=== PATIENT | male | born 1940 | race Caucasian/White ===

== ENCOUNTER 2016-06-05 10:48 | Inpatient (IN) | payer OTHER, BC ==
[2016-06-05] MEDS ORDERED: NS 1/2 1000 ML IV 1,000 ML IV SCH (12:43)
[2016-06-05] MEDS ORDERED: TUSSIONEX PENNKINETIC SUSP PO PRN (12:43)
[2016-06-05] MEDS ORDERED: ULTRAM PO PRN (12:58)
[2016-06-05] MEDS ORDERED: SIMETHICONE PO PRN (12:58)
[2016-06-05] MEDS: DUONEB 0.5 MG/3 MG NEB SCH ×3 (13:11→20:31)
[2016-06-05] MEDS ORDERED: NS 1/2 1000 ML IV 1,000 ML IV ONE (13:11)
[2016-06-05 13:15] LABS: BASOPHILS % (AUTO) 0.2 % (0.2-1.0); HEMATOCRIT 29.4 % (42.0-54.0); HEMOGLOBIN 9.8 g/dL (13.5-18.0); LYMPHOCYTES # (AUTO) 1.1 X10^3/uL (1.3-2.9); LYMPHOCYTES % (AUTO) 14.1 % (21.0-51.0); MEAN CORPUSCULAR HEMOGLOBIN 29.6 pg (27.0-34.0); MEAN CORPUSCULAR HGB CONC 33.4 g/dL (33.0-35.0); MEAN CORPUSCULAR VOLUME 88.7 fL (80.0-100.0); MEAN PLATELET VOLUME 7.8 fL (7.4-11.0); MONOCYTES # (AUTO) 0.3 x10^3/uL (0.3-0.8); MONOCYTES % (AUTO) 4.6 % (0.0-13.0); NEUTROPHILS # (AUTO) 6.1 x10^3/uL (2.2-4.8); NEUTROPHILS % (AUTO) 81.1 % (42.0-75.0); PLATELET COUNT 203 X10^3/uL (150.0-450.0); RED BLOOD COUNT 3.32 X10^6/uL (4.7-6.0); RED CELL DISTRIBUTION WIDTH 17.6 % (11.6-16.5); WHITE BLOOD COUNT 7.6 X10^3/uL (3.6-10.0)
[2016-06-05] MEDS ORDERED: MYLICON TAB 80 MG CHEW PO PRN (13:18)
[2016-06-05] MEDS: LEVAQUIN PREMIX IV 750 MG 750 MG/150 ML BAG IV SCH (13:26)
[2016-06-05] MEDS: ROBITUSSIN DM PO SCH ×3 (13:26→21:32)
[2016-06-05] MEDS ORDERED: LEXAPRO ONE (13:28)
[2016-06-05] MEDS: LEXAPRO PO SCH (13:28)
[2016-06-05 13:42] LABS: ALANINE AMINOTRANSFERASE 21 Units/L (12-78); ALBUMIN 2.3 g/dL (3.4-5.0); ALKALINE PHOSPHATASE 73 Units/L (46-116); ASPARTATE AMINO TRANSFERASE 16 Units/L (15-37); BLOOD UREA NITROGEN 19 mg/dL (7-18); CALCIUM 7.9 mg/dL (8.5-10.1); CARBON DIOXIDE 30.6 mmol/L (21-32); CHLORIDE 97 mmol/L (98-107); COR CA(FOR HYPOALB) 9.3 mg/dL (8.5-10.1); CREATININE 0.75 mg/dL (0.70-1.30); GLUCOSE 86 mg/dL (65-99); SODIUM 135 mmol/L (136-145); TOTAL PROTEIN 5.8 g/dL (6.4-8.2); eGFR BLACK RACES > 60 (>60); eGFR NON BLACK RACES > 60 (>60)
[2016-06-05] MEDS: TUMS PO SCH ×2 (14:38→21:33)
[2016-06-05] MEDS: ZOSYN VIAL 4.5 GM 4.5 GM in NS 100 ML IV + SPIKE MINIBAG* 100 ML IV SCH ×2 (14:40→22:00)
[2016-06-05] MEDS ORDERED: MORPHINE SULFATE INJ 2 MG IVP PRN (14:49)
[2016-06-05] MEDS ORDERED: MORPHINE SULFATE INJ 2 MG ONE (14:50)
--- NOTE | 2016-06-05 15:09 | DR.UPDATE ---
H&P Update History and Physical Update: HISTORY AND PHYSICAL UPDATE FOR ADMISSION 06/05/16 MR. HERNANDEZ'S H&P WAS COMPLETED IN OUR OFFICE PRIOR TO ADMISSION. HE HAS BEEN SEEN AND EXAMINED WITH NO CHANGES NOTED.
[2016-06-05] MEDS ORDERED: OXYFAST ORAL CONCENTRATE PO PRN (15:12)
[2016-06-05 15:50] LABS: ABG BASE EXCESS 5.4 mmol/L (-2.0-2.0)
[2016-06-05 15:51] LABS: ABG HCO3 31.9 mmol/L (22-26)
[2016-06-05 15:52] LABS: ABG ALLEN TEST POS
--- NOTE | 2016-06-05 16:07 | RAD ---
Chest AP portable Indication: Pneumonia. Comparison: May 16, 2016. Findings: There is bilateral pulmonary opacities, without pneumothorax. Heart size is prominent. Sma ll effusions may be present. Impression: Findings suggest multifocal pneumonia. CHF is possible as well. Followup to resolution. PA and lateral chest may be helpful. Reported By:
[2016-06-05 16:10] VITALS: BMI 26.7
[2016-06-05] MEDS: VALIUM INJ IVP PRN (16:22)
[2016-06-05] MEDS: CARAFATE PO SCH ×2 (17:17→21:31)
[2016-06-05] MEDS ORDERED: MORPHINE SULFATE PCA 30 MG IVP PRN (18:47)
[2016-06-05] MEDS ORDERED: NS 1/2 500 ML IV 500 ML IV SCH (19:00)
[2016-06-05] MEDS ORDERED: MORPHINE SULFATE PCA 30 MG IVP SCH (19:00)
[2016-06-05] MEDS: ELIQUIS PO SCH (21:30)
[2016-06-05] MEDS: MEGACE PO SCH (21:31)
[2016-06-05] MEDS: [UNRECOGNIZED DRUG - OTHER] PO SCH (21:32)
[2016-06-05] MEDS: SOLU-MEDROL 40 MG VIAL IVP SCH (22:01)
[2016-06-05 22:14] LABS: ABG BASE EXCESS 6.3 mmol/L (-2.0-2.0)
[2016-06-05 22:15] LABS: ABG HCO3 30.6 mmol/L (22-26); FRACTIONATED INSPIRED OXYGEN 70
[2016-06-06] MEDS: DUONEB 0.5 MG/3 MG NEB SCH ×6 (01:03→20:30)
[2016-06-06 05:01] LABS: ABG BASE EXCESS 6.8 mmol/L (-2.0-2.0)
[2016-06-06 05:02] LABS: ABG HCO3 31.3 mmol/L (22-26); FRACTIONATED INSPIRED OXYGEN 70
[2016-06-06 05:30] LABS: BASOPHILS % (AUTO) 0 % (0.2-1.0); EOSINOPHILS % (AUTO) 0.1 % (0.9-2.9); HEMATOCRIT 29.3 % (42.0-54.0); HEMOGLOBIN 9.8 g/dL (13.5-18.0); LYMPHOCYTES # (AUTO) 0.4 X10^3/uL (1.3-2.9); MEAN CORPUSCULAR HEMOGLOBIN 29.7 pg (27.0-34.0); MEAN CORPUSCULAR HGB CONC 33.5 g/dL (33.0-35.0); MEAN CORPUSCULAR VOLUME 88.8 fL (80.0-100.0); MEAN PLATELET VOLUME 8.7 fL (7.4-11.0); MONOCYTES # (AUTO) 0.1 x10^3/uL (0.3-0.8); MONOCYTES % (AUTO) 1.5 % (0.0-13.0); NEUTROPHILS # (AUTO) 8.2 x10^3/uL (2.2-4.8); NEUTROPHILS % (AUTO) 93.4 % (42.0-75.0); PLATELET COUNT 166 X10^3/uL (150.0-450.0); RED CELL DISTRIBUTION WIDTH 17.3 % (11.6-16.5); WHITE BLOOD COUNT 8.8 X10^3/uL (3.6-10.0)
[2016-06-06 05:42] LABS: ALANINE AMINOTRANSFERASE 17 Units/L (12-78); ALKALINE PHOSPHATASE 68 Units/L (46-116); ASPARTATE AMINO TRANSFERASE 12 Units/L (15-37); BLOOD UREA NITROGEN 22 mg/dL (7-18); CALCIUM 8.3 mg/dL (8.5-10.1); CARBON DIOXIDE 28.4 mmol/L (21-32); CHLORIDE 99 mmol/L (98-107); COR CA(FOR HYPOALB) 9.9 mg/dL (8.5-10.1); COR NA(FOR HYPERGLY) 135 mmol/L (136-145); CREATININE 0.69 mg/dL (0.70-1.30); GLUCOSE 115 mg/dL (65-99); SODIUM 135 mmol/L (136-145); TOTAL PROTEIN 5.3 g/dL (6.4-8.2); eGFR BLACK RACES > 60 (>60); eGFR NON BLACK RACES > 60 (>60)
[2016-06-06] MEDS: ZOSYN VIAL 4.5 GM 4.5 GM in NS 100 ML IV + SPIKE MINIBAG* 100 ML IV SCH ×3 (06:05→22:47)
[2016-06-06] MEDS: TUMS PO SCH ×3 (06:05→22:46)
[2016-06-06] MEDS: SOLU-MEDROL 40 MG VIAL IVP SCH ×3 (06:05→22:47)
[2016-06-06] MEDS: CARAFATE PO SCH ×4 (06:17→22:45)
[2016-06-06 06:20] LABS: BAND NEUTROPHILS % 39 % (0-10); METAMYELOCYTES % 10
[2016-06-06 06:21] LABS: PLATELET MORPHOLOGY COMMENT NORMAL (NORMAL)
[2016-06-06] MEDS ORDERED: LEXAPRO ONE (08:41)
[2016-06-06] MEDS ORDERED: ZOFRAN INJ 4 MG VIAL IVP PRN (09:00)
[2016-06-06] MEDS ORDERED: MORPHINE SULFATE PCA 30 MG IVP PRN (09:00)
[2016-06-06] MEDS ORDERED: PROCALAMINE 3 % 1,000 ML IV SCH (09:00)
[2016-06-06] MEDS: LEVAQUIN PREMIX IV 750 MG 750 MG/150 ML BAG IV SCH (09:08)
[2016-06-06] MEDS: ALBUMIN HUMAN 25%- 100ML 100 ML IV SCH (09:08)
[2016-06-06] MEDS: ROBITUSSIN DM PO SCH ×4 (09:09→22:46)
[2016-06-06] MEDS: MILK OF MAGNESIA PO SCH (09:09)
[2016-06-06] MEDS: ELIQUIS PO SCH ×2 (09:10→22:45)
[2016-06-06] MEDS: MEGACE PO SCH ×2 (09:10→22:45)
[2016-06-06] MEDS: LEXAPRO PO SCH (09:10)
[2016-06-06] MEDS: [UNRECOGNIZED DRUG - OTHER] PO SCH (09:11)
[2016-06-06] MEDS: CLINIMIX 4.25 %/10 % 1,000 ML with MVI INJ (ADULT) 10 ML, TRACE ELEMENTS INJ 10 ML, TPN... IV SCH ×5 (16:59)
[2016-06-06] MEDS ORDERED: SNACK - Diabetic Appropriate PO SCH (20:00)
[2016-06-06] MEDS: [UNRECOGNIZED DRUG - OTHER] PO SCH (22:46)
[2016-06-06] MEDS: OTBS NS XX SCH (22:50)
[2016-06-06] MEDS: HUMULIN R SUBCUT PRN (23:01)
[2016-06-07] MEDS: HUMULIN R SUBCUT PRN (01:02)
[2016-06-07] MEDS: OTBS NS XX SCH ×3 (01:02→09:57)
[2016-06-07] MEDS: CLINIMIX 4.25 %/10 % 1,000 ML with MVI INJ (ADULT) 10 ML, TRACE ELEMENTS INJ 10 ML, TPN... IV SCH ×5 (01:03)
[2016-06-07] MEDS: DUONEB 0.5 MG/3 MG NEB SCH ×4 (01:43→17:33)
[2016-06-07] MEDS: VALIUM INJ IVP PRN (02:26)
[2016-06-07 05:40] LABS: ABG BASE EXCESS 1.7 mmol/L (-2.0-2.0)
[2016-06-07] MEDS ORDERED: LASIX IVP ONE ×2 (05:52→05:55)
[2016-06-07] MEDS ORDERED: NARCAN INJ ONE (06:06)
[2016-06-07 06:08] LABS: BILIRUBIN,URINE NEGATIVE (NEGATIVE); BLOOD/HEMOGLOBIN,URINE 1+ (NEGATIVE); GLUCOSE, URINE NEGATIVE (NEGATIVE); KETONES,URINE NEGATIVE (NEGATIVE); LEUKOCYTE ESTERASE ,URINE NEGATIVE (NEGATIVE); NITRITES,URINE NEGATIVE (NEGATIVE); PROTEIN,URINE 2+ (NEGATIVE); UROBILINOGEN,URINE NORMAL (NORMAL)
[2016-06-07] MEDS ORDERED: NARCAN INJ IM ONE (06:08)
[2016-06-07] MEDS ORDERED: NARCAN INJ IVP ONE (06:08)
[2016-06-07 06:11] LABS: BASOPHILS % (AUTO) 0.3 % (0.2-1.0); HEMATOCRIT 32.7 % (42.0-54.0); HEMOGLOBIN 10.7 g/dL (13.5-18.0); LYMPHOCYTES # (AUTO) 0.6 X10^3/uL (1.3-2.9); LYMPHOCYTES % (AUTO) 5.2 % (21.0-51.0); MEAN CORPUSCULAR HEMOGLOBIN 29.3 pg (27.0-34.0); MEAN CORPUSCULAR HGB CONC 32.7 g/dL (33.0-35.0); MEAN CORPUSCULAR VOLUME 89.6 fL (80.0-100.0); MEAN PLATELET VOLUME 8.8 fL (7.4-11.0); MONOCYTES # (AUTO) 0.3 x10^3/uL (0.3-0.8); MONOCYTES % (AUTO) 2.3 % (0.0-13.0); NEUTROPHILS # (AUTO) 10.2 x10^3/uL (2.2-4.8); NEUTROPHILS % (AUTO) 92.2 % (42.0-75.0); PLATELET COUNT 223 X10^3/uL (150.0-450.0); RED BLOOD COUNT 3.65 X10^6/uL (4.7-6.0); RED CELL DISTRIBUTION WIDTH 17.3 % (11.6-16.5)
[2016-06-07 06:13] LABS: ALANINE AMINOTRANSFERASE 14 Units/L (12-78); ALBUMIN 2.3 g/dL (3.4-5.0); ALKALINE PHOSPHATASE 68 Units/L (46-116); ASPARTATE AMINO TRANSFERASE 15 Units/L (15-37); BLOOD UREA NITROGEN 26 mg/dL (7-18); CALCIUM 8.7 mg/dL (8.5-10.1); CARBON DIOXIDE 29.4 mmol/L (21-32); CHLORIDE 99 mmol/L (98-107); COR CA(FOR HYPOALB) 10.1 mg/dL (8.5-10.1); COR NA(FOR HYPERGLY) 136 mmol/L (136-145); CREATININE 0.65 mg/dL (0.70-1.30); GLUCOSE 215 mg/dL (65-99); MAGNESIUM 2.3 mg/dL (1.7-2.9); SODIUM 133 mmol/L (136-145); TOTAL PROTEIN 5.9 g/dL (6.4-8.2); TRIGLYCERIDES 35 mg/dL (0-150); eGFR BLACK RACES > 60 (>60); eGFR NON BLACK RACES > 60 (>60)
[2016-06-07 06:20] LABS: ABG HCO3 32.5 mmol/L (22-26)
[2016-06-07 06:21] LABS: ABG ALLEN TEST POS
[2016-06-07] MEDS: TUMS PO SCH ×2 (06:32→15:03)
[2016-06-07] MEDS: CARAFATE PO SCH ×3 (06:33→16:35)
[2016-06-07 06:39] LABS: ABG BASE EXCESS -0.6 mmol/L (-2.0-2.0)
[2016-06-07] MEDS: SOLU-MEDROL 40 MG VIAL IVP SCH ×2 (06:42→15:02)
[2016-06-07 06:49] LABS: AMORPHOUS SEDIMENT,UR TRACE /HPF (NEGATIVE); APPEARANCE,URINE CLEAR (CLEAR); BACTERIA,URINE NEGATIVE /HPF (NEGATIVE); COLOR,URINE YELLOW (YELLOW); FINE GRANULAR CASTS,URINE FEW /LPF (NEGATIVE); SQUAMOUS EPITHELIAL CELL,UR RARE /HPF (NEGATIVE)
[2016-06-07 06:50] LABS: MUCUS,URINE FEW /HPF (NEGATIVE)
[2016-06-07 06:52] LABS: ABG HCO3 31.7 mmol/L (22-26)
[2016-06-07 06:53] LABS: ABG ALLEN TEST POS
[2016-06-07 06:57] LABS: ABG BASE EXCESS 0.3 mmol/L (-2.0-2.0)
[2016-06-07 06:59] LABS: ABG ALLEN TEST POS
[2016-06-07 07:22] LABS: BAND NEUTROPHILS % 45 % (0-10); METAMYELOCYTES % 3; PLATELET MORPHOLOGY COMMENT NORMAL (NORMAL)
[2016-06-07 07:42] LABS: ABG BASE EXCESS 4.1 mmol/L (-2.0-2.0)
[2016-06-07 07:43] LABS: ABG HCO3 31.3 mmol/L (22-26)
[2016-06-07 07:44] LABS: ABG ALLEN TEST POS
[2016-06-07] MEDS: ALBUMIN HUMAN 25%- 100ML 100 ML IV SCH (09:42)
[2016-06-07] MEDS: LEVAQUIN PREMIX IV 750 MG 750 MG/150 ML BAG IV SCH (09:43)
[2016-06-07] MEDS: ZOSYN VIAL 4.5 GM 4.5 GM in NS 100 ML IV + SPIKE MINIBAG* 100 ML IV SCH ×2 (09:43→15:02)
[2016-06-07] MEDS: ELIQUIS PO SCH (09:59)
[2016-06-07] MEDS: LEXAPRO PO SCH (09:59)
[2016-06-07] MEDS: [UNRECOGNIZED DRUG - OTHER] PO SCH (09:59)
[2016-06-07] MEDS: ROBITUSSIN DM PO SCH ×3 (10:00→18:55)
[2016-06-07] MEDS: MEGACE PO SCH (10:00)
[2016-06-07] MEDS: MILK OF MAGNESIA PO SCH (10:00)
[2016-06-07] MEDS ORDERED: MORPHINE SULFATE INJ 2 MG ONE (12:06)
[2016-06-07] MEDS ORDERED: MORPHINE SULFATE INJ 2 MG IVP ONE ×2 (12:25→14:34)
[2016-06-07] MEDS ORDERED: NS 500 ML IV 500 ML IV ONE (13:52)
[2016-06-07] MEDS ORDERED: MORPHINE SULFATE PCA 30 MG ONE (13:54)
[2016-06-07] MEDS: MORPHINE SULFATE INJ 2 MG IV SCH ×2 (14:29→14:38)
[2016-06-07] MEDS: VERSED 100 MG in NS 100 ML IV 80 ML IV PRN ×2 (14:30→20:30)
[2016-06-07] MEDS: MORPHINE SULFATE PCA 30 MG IV SCH ×6 (15:01→23:00)
--- NOTE | 2016-06-07 18:51 | PCM.PROG ---
Progress Note - Progress Note for Day of Date: 06/06/16 - Subjective Subjective: PATIENT RESTS IN BED, BIPAP INTACT. PATIENT IS ALERT, ORIENTED. PATIENT REPORTS NAUSEA THIS MORNING. PATIENT WAS STARTED ON A MORPHINE DRIVER/MERCHANDISER YESTERDAY DUE TO REPSIRATORY DISTRESS. THIS MORNING, HE IS DROWSY. O2 SATURATION IS 97% WHILE ON BIPAP. O2 SATURATION WAS LOW 90'S ON ROOM AIR YESTERDAY. PATIENT'S APPETITE HAS BEEN POOR FOR A COUPLE OF WEEKS. 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 PATENT TRAVELED TO [place] IN EARLY APRIL OF THE YEAR FOR ALTERNATIVE TREATMENT. ON AUSCULTATION, LUNGS ARE NOTED WITH COARSE WHEEZES AND RHONCHI THROUGHOUT. CBC WNL EXCEPT: H/H 9.8/29.3. CMP WNL EXCEPT: SODIUM 135, BUN 22, GLUCOSE 115, CALCIUM 8.3, TOT PROTEIN 5.3, ALBUMIN 2.0. WE WILL START ALBUMIN IV, PERIPHERAL TPN, ZOFRAN, AND DECREASE MORPHINE DRIVER/MERCHANDISER TO 0.5MG/HR. WE WILL CONTINUE IV LEVAQUIN, IV ZOSYN, DUONEBS, BIPAP, AND CONTINUE TO MONITOR. WE WILL FOLLOW UP IN AM WITH LABS. - Past Medical Family Social History Past Med/Fam/Surg Hx: No changes since H&P Allergies: Allergies No Known Drug Allergy Allergy (Verified 12/20/15 13:53) - Review of Systems ROS: No change since H&P - Vital Signs and I&O's Vital Signs: Temperature 97.8 F Pulse Rate [Apical] 119 Pulse Rate [Left Brachial] 95 Pulse Rate 111 Respiratory Rate 28 Blood Pressure [Left Arm] 126/77 Blood Pressure [Right Arm] 109/64 Blood Pressure 135/64 O2 Sat by Pulse Oximetry 79 Intake and Output: Intake & Output 06/05/16 06/06/16 06/07/16 06/08/16 11:59 11:59 11:59 11:59 Intake Total 1121 2452 2481 Output Total 300 1025 500 Balance 821 1427 1980 - Physical Exam Oriented: Normal, Time, Person, Place Eyes: Normal. negative: Blurred Vision, Diplopia, Discharge, Pain, Redness, Photophobia Ear: Normal. negative: Swelling, Ecchymosis, Hemotypanum, Abrasion, Laceration Nose: Normal. negative: Injected, Discharge, Blood Throat: Dry. negative: Tonsillar Hypertrophy, Exudate Respiratory: Generalized, Wheezes, Rhonchi Cardiovascular: Normal. negative: Murmur, Edema : Normal. negative: Dysuria, Hematuria, Frequency, Discharge, Testicular Pain Auscultation: Bowel Sounds: Decreased. negative: Bruit Palpation: Normal. negative: Spleen Enlarged, Liver Enlarged, Mass Pulsatile Tenderness: Normal. negative: Rebound, Guarding, Rigidity Skin: Decreased Turgur. negative: Diaphoresis, Wound, Bruising, Ecchymosis Musculoskeletal: Instability Psychiatric: Normal Mood Description: Calm, Appropriate Affect: Normal Speech Pattern: Clear, Appropriate - Laboratory and Diagnostics Result Diagrams: 06/07/16 05:00 06/07/16 05:00 Labs: 06/05/16 13:13 Sputum - Expectorated Sputum Sputum Culture - Final Escherichia Coli 06/05/16 13:13 Sputum - Expectorated Sputum - Final 06/05/16 13:02 Blood Blood Culture - Preliminary 06/05/16 12:52 Blood Blood Culture - Preliminary Laboratory WBC 11.0 X10^3/uL (3.6-10.0) H 06/07/16 05:00 RBC 3.65 X10^6/uL (4.7-6.0) L 06/07/16 05:00 Hgb 10.7 g/dL (13.5-18.0) L 06/07/16 05:00 Hct 32.7 % (42.0-54.0) L 06/07/16 05:00 MCV 89.6 fL (80.0-100.0) 06/07/16 05:00 MCH 29.3 pg (27.0-34.0) 06/07/16 05:00 MCHC 32.7 g/dL (33.0-35.0) L 06/07/16 05:00 RDW 17.3 % (11.6-16.5) H 06/07/16 05:00 Plt Count 223 X10^3/uL (150.0-450.0) 06/07/16 05:00 Plt Count Comment Adequate (ADEQUATE) 06/07/16 05:00 MPV 8.8 fL (7.4-11.0) 06/07/16 05:00 Neut % 92.2 % (42.0-75.0) H 06/07/16 05:00 Lymph % 5.2 % (21.0-51.0) L 06/07/16 05:00 [place] % 2.3 % (0.0-13.0) 06/07/16 05:00 Eos % 0.0 % (0.9-2.9) L 06/07/16 05:00 Baso % 0.3 % (0.2-1.0) 06/07/16 05:00 Neut # 10.2 x10^3/uL (2.2-4.8) H 06/07/16 05:00 Lymph # 0.6 X10^3/uL (1.3-2.9) L 06/07/16 05:00 [place]cer # 0.3 x10^3/uL (0.3-0.8) 06/07/16 05:00 Eos # 0.0 x10^3/uL (0.0-0.2) 06/07/16 05:00 Baso # 0.0 X10^3/uL (0.0-0.1) 06/07/16 05:00 Absolute Nucleated RBC 0.0 /100WBC 06/07/16 05:00 Total Counted 100 06/07/16 05:00 Neutrophils % (Manual) 45 % (39-76) 06/07/16 05:00 Band Neutrophils % 45 % (0-10) H 06/07/16 05:00 Lymphocytes % (Manual) 7 % (13-43) L 06/07/16 05:00 Monocytes % (Manual) 1 % (4-9) L 06/06/16 04:40 Metamyelocytes % 3 06/07/16 05:00 Plt Morphology Comment Normal (NORMAL) 06/07/16 05:00 RBC Morphology Normal (NORMAL) 06/07/16 05:00 Sample Site Lrad 06/07/16 07:40 ABG pH 7.340 (7.35-7.45) L 06/07/16 07:40 ABG pCO2 58.0 mmHg (35.0-45.0) H* 06/07/16 07:40 ABG pO2 50.0 mmHg (80.0-100.0) L 06/07/16 07:40 ABG HCO3 31.3 mmol/L (22-26) H* 06/07/16 07:40 ABG O2 Saturation 82.0 % (90-100) L* 06/07/16 07:40 ABG Base Excess 4.1 mmol/L (-2.0-2.0) H 06/07/16 07:40 Stpehen Test Pos 06/07/16 07:40 A-a Gradient 519.0 mmHg 06/07/16 07:40 FiO2 90.000 06/07/16 07:40 Blood Gas Comments Elias well-mtf 06/07/16 07:40 Sodium 133 mmol/L (136-145) L 06/07/16 05:00 Corrected Sodium 136 mmol/L (136-145) 06/07/16 05:00 Potassium 4.4 mmol/L (3.5-5.1) 06/07/16 05:00 Chloride 99 mmol/L (98-107) 06/07/16 05:00 Carbon Dioxide 29.4 mmol/L (21-32) 06/07/16 05:00 BUN 26 mg/dL (7-18) H 06/07/16 05:00 Creatinine 0.65 mg/dL (0.70-1.30) L 06/07/16 05:00 Est GFR (MDRD) Af Amer > 60 (>60) 06/07/16 05:00 Est GFR (MDRD) Non-Af > 60 (>60) 06/07/16 05:00 Glucose 215 mg/dL (65-99) H 06/07/16 05:00 Calcium 8.7 mg/dL (8.5-10.1) 06/07/16 05:00 Corrected Calcium 10.1 mg/dL (8.5-10.1) 06/07/16 05:00 Magnesium 2.3 mg/dL (1.7-2.9) 06/07/16 05:00 Total Bilirubin 0.50 mg/dL (0.2-1.0) 06/07/16 05:00 AST 15 Units/L (15-37) 06/07/16 05:00 ALT 14 Units/L (12-78) 06/07/16 05:00 Alkaline Phosphatase 68 Units/L (46-116) 06/07/16 05:00 Total Protein 5.9 g/dL (6.4-8.2) L 06/07/16 05:00 Albumin 2.3 g/dL (3.4-5.0) L 06/07/16 05:00 Globulin 3.6 g/dL (2.5-4.5) 06/07/16 05:00 Albumin/Globulin Ratio 0.6 Ratio (1.1-2.1) L 06/07/16 05:00 Prealbumin 5.0 mg/dL (18-35.7) L 06/07/16 05:00 Triglycerides 35 mg/dL (0-150) 06/07/16 05:00 Specimen Type Clean catch urine 06/07/16 05:29 Urine Color Yellow (YELLOW) 06/07/16 05:29 Urine Appearance Clear (CLEAR) 06/07/16 05:29 Urine pH 6.0 (5.0 - 8.0) 06/07/16 05:29 Ur Specific [place] 1.020 (1.000-1.030) 06/07/16 05:29 Urine Protein 2+ (NEGATIVE) 06/07/16 05:29 Urine Glucose (UA) Negative (NEGATIVE) 06/07/16 05:29 Urine Ketones Negative (NEGATIVE) 06/07/16 05:29 Urine Occult Blood 1+ (NEGATIVE) 06/07/16 05:29 Urine Nitrite Negative (NEGATIVE) 06/07/16 05:29 Urine Bilirubin Negative (NEGATIVE) 06/07/16 05:29 Urine Urobilinogen Normal (NORMAL) 06/07/16 05:29 Ur Leukocyte Esterase Negative (NEGATIVE) 06/07/16 05:29 Urine RBC 3-5 /HPF (NEGATIVE) 06/07/16 05:29 Urine WBC Rare /HPF (NEGATIVE) 06/07/16 05:29 Ur Squamous Epith Cells Rare /HPF (NEGATIVE) 06/07/16 05:29 Amorphous Sediment Trace /HPF (NEGATIVE) 06/07/16 05:29 Urine Bacteria Negative /HPF (NEGATIVE) 06/07/16 05:29 Fine Granular Casts Few /LPF (NEGATIVE) 06/07/16 05:29 Urine Mucus Few /HPF (NEGATIVE) 06/07/16 05:29 Ur Culture Indicated? No/not indicated 06/07/16 05:29 - Plan (1) Aspiration pneumonia Status: Acute Qualifiers: Aspiration pneumonia type: due to regurgitated food Laterality: bilateral Lung location: lower lobe of lung Qualified Code(s): J69.0 - Pneumonitis due to inhalation of food and vomit Plan: CONTINUE LEVAQUIN, ZOSYN, DUONEBS, ROBITUSSIN, SUPPLEMENTAL OXYGEN, BIPAP , MONITOR LABS AND CHEST XRAY. (2) Esophageal cancer Status: Chronic Qualifiers: Malignant neoplasm of esophagus location: unspecified location Qualified Code(s): C15.9 - Malignant neoplasm of esophagus, unspecified (3) Metastatic cancer Status: Chronic (4) Back pain Status: Chronic Qualifiers: Back pain location: low back pain Chronicity: chronic Back pain laterality: bilateral Sciatica presence: without sciatica Sciatica laterality: S Qualified Code(s): M54.5 - Low back pain; G89.29 - Other chronic pain
[2016-06-07] MEDS ORDERED: ISOPTO ATROPINE AFFEYE ONE (20:25)
[2016-06-07] MEDS ORDERED: CHECK PATCH XX SCH (21:00)
[2016-06-07] MEDS ORDERED: ISOPTO ATROPINE SL PRN (21:49)
[2016-06-08] MEDS: MORPHINE SULFATE PCA 30 MG IV SCH ×9 (00:02→07:00)
[2016-06-08] MEDS: VERSED 100 MG in NS 100 ML IV 80 ML IV PRN (04:45)
[2016-06-08 09:27] VITALS: BP 52/25
== END 2016-06-08 13:19 | disposition expired | DRG 178 ==
LOC: OBSVTOIN 10:48 → INTOOBSV 10:48 → ICU 10:48 → OBSVTOIN 06-07 08:00
PROVIDERS: ADMIT Internal Medicine; ATTEND Internal Medicine
DX: J69.0 Pneumonitis due to inhalation of food and vomit (principal); C15.9 Malignant neoplasm of esophagus, unspecified; R53.83 Other fatigue; R53.1 Weakness; E86.9 Volume depletion, unspecified; M54.5 Low back pain; G89.29 Other chronic pain; Z66 Do not resuscitate; C79.89 Secondary malignant neoplasm of other specified sites; R09.2 Respiratory arrest
CPT/HCPCS: 36415; 36600; 71010; 80053; 81001; 82803; 83735; 84134; 84478; 85025; 87040; 87070; 87077; 87186; 87205; 93005; 94640; 94660; A4222; A4618; A7030; B4189; P9047; S0179; G0378; J1815; J1940; J1956; J2250; J2270; J2271; J2310; J2543; J2920; J3360; J7620